=== PATIENT | female | born 2000 | race African-American/Black ===

== ENCOUNTER 2024-08-06 09:27 | Emergency (ER) | payer BC ==
[2024-08-06 09:37] VITALS: BP 108/60; PULSE 77; RESP 18; TEMP 98.8; BMI 34.7
[2024-08-06] MEDS ORDERED: ACETAMINOPHEN 500 MG TABLET (FP) ONE (10:35)
[2024-08-06] MEDS ORDERED: IBUPROFEN 600 MG TABLET (FP) PO ONE (10:35)
[2024-08-06] MEDS ORDERED: LIDOCAINE 4% PATCH TP ONE (10:35)
[2024-08-06] MEDS: LIDOCAINE 4% PATCH TP ONE (10:51)
[2024-08-06] MEDS: IBUPROFEN 600 MG TABLET (FP) PO ONE (10:52)
[2024-08-06] MEDS: ACETAMINOPHEN 500 MG TABLET (FP) PO ONE (10:52)
== END 2024-08-06 11:03 | disposition home or self-care (01) ==
LOC: JERFT 09:27
DX: S93.402A Sprain of unspecified ligament of left ankle, initial encounter (principal); W00.0XXA Fall on same level due to ice and snow, initial encounter
CPT/HCPCS: 73610-TC-LT-FY; 99283-25